=== PATIENT | female | born 1975 | race Caucasian/White ===

== ENCOUNTER → 2020-02-25 | Outpatient (CLI) | payer BC ==
[~2020-02-25] MED LIST: ALDACTONE25 MG PO; WELLBUTRIN XL300 M1 PO
== END ==
LOC: RAD 02-22 07:45
DX: N83.01 Follicular cyst of right ovary (principal); D25.9 Leiomyoma of uterus, unspecified; R41.0 Disorientation, unspecified; R63.5 Abnormal weight gain; R68.81 Early satiety